=== PATIENT | female | born 1985 | race Caucasian/White ===

== ENCOUNTER 2017-10-15 13:06 | Inpatient (IN) | payer OTHER ==
[2017-10-15 13:25] VITALS: BMI 35.5
--- NOTE | 2017-10-15 13:44 | OBHP ---
Datetime: 10/15/2017 13:40 IP Adm Impression: , intrauterine IP Chief Complaint Other: no fh on level ii IP Admit Plan: Admit to unit; Initiate labor induction protocol Admit Comment, IP Provider: at 20=weeks edc 02/28/18 here as no fh seen on sono. pt was having s ome cramping few daus ago,no vb, lof. pt went for schuled level ii and no fh. obhx primi pmh obese med pnv all nkda psh de soch de a/p at 20+weeks demise repeat sonogram cont toco and possible induction if no fh Pelvic Type - PN: Adequate Extremities - PN: Normal Abdomen - PN: Normal Back - PN: Normal Breast - PN: Normal Lungs - PN: Normal Heart - PN: Normal Thyroid - PN: Normal Neurologic - PN: Normal HEENT - PN: Normal General - PN: Normal Contraction Comments Provider: none Vital Signs Provider: Reviewed; Within Normal Limits Genitourinary Exam: Normal DTRs - PN: Normal
[2017-10-15] MEDS: Lactated Ringer's 1,000 ML IV SCH ×2 (14:00→22:00)
--- NOTE | 2017-10-15 14:02 | OBADHP ---
Datetime: 10/15/2017 13:40 IP Chief Complaint Other: no fh on level ii Admit Comment, IP Provider: at 20=weeks edc 02/28/18 here as no fh seen on sono. pt was having s ome cramping few daus ago,no vb, lof. pt went for schuled level ii and no fh. obhx primi pmh obese med pnv all nkda psh de soch de a/p at 20+weeks demise repeat sonogram cont toco and possible induction if no fh sono no fh plan admit to l_d npo/ivf cytotec for induction torch titres u drug screen pain managment anticipate vaginal Pelvic Type - PN: Adequate Extremities - PN: Normal Abdomen - PN: Normal Back - PN: Normal Breast - PN: Normal Lungs - PN: Normal Heart - PN: Normal Thyroid - PN: Normal Neurologic - PN: Normal HEENT - PN: Normal General - PN: Normal Contraction Comments Provider: none Vital Signs Provider: Reviewed; Within Normal Limits Genitourinary Exam: Normal DTRs - PN: Normal IP Adm Impression: , intrauterine IP Admit Plan: Admit to unit; Initiate labor induction protocol
--- NOTE | 2017-10-15 14:15 | US ---
PROCEDURE: OB Pelvic Ultrasound HISTORY: Assess appears report 05/21/2017 with estimated gestational age of 21 weeks 0 days accordingly. No heart rate heard on ultrasound COMPARISON: None available. FINDINGS: UTERUS: Gestational sac: Single intrauterine gestation. Heart rate: No detected and B-mode or on spectral analysis. age (Ultrasound estimated): 18 weeks 3 days is discrepant from schwannoma weeks 0 days based on last menstrual period derived dates. The following mean parameters were obtained: BPD 3.85 cm corresponds to 17 weeks 5 days. HC 14.81 cm corresponds to 18 weeks 0 days. AC 12.9 cm corresponds to 18 weeks 3 days. FL 3.1 cm corresponds to 19 weeks 4 days. HC/AC ratio is within the normal range at 1.15. Estimated weight 260.17 g. Ashlee-gestational hemorrhage: None. Date of delivery (Ultrasound estimated) : 03/15/2018. Uterus no definitive mass seen throughout the myometrium with the cervix unremarkable. . CERVIX: Long and closed. No cervical abnormality seen. RIGHT OVARY: Not identified, no suspicious right adnexal mass. LEFT OVARY: Not identified, no suspicious left adnexal mass. FREE FLUID: None. OTHER FINDINGS: None. IMPRESSION: Findings most compatible with spontaneous with an 18 week 6 day intrauterine gestation identified in breech lie with posterior fundal placenta but no cardiac activity detectable. Please see discussion above. Further clinical correlation is advised.
[2017-10-15 14:57] LABS: BASO % 0.3 % (0.0-2.0); EOS # 0.2 K/uL (0.0-0.7); EOS % 1.5 % (0.0-4.0); HEMATOCRIT 38.3 % (34.0-47.0); LYMPH # 1.4 K/uL (1.0-4.3); LYMPH % 12.3 % (20.0-40.0); MEAN CELL VOLUME 88.8 fL (81.0-99.0); MEAN CORPUSCULAR HEMOGLOBIN 30.7 pg (27.0-31.0); MEAN CORPUSCULAR HGB CONC 34.6 g/dL (33.0-37.0); MEAN PLATELET VOLUME 8.5 fL (7.2-11.7); MONO # 0.4 K/uL (0.0-0.8); MONO % 3.9 % (0.0-10.0); WHITE BLOOD COUNT 11.3 K/uL (4.8-10.8)
[2017-10-15 15:08] LABS: INR 1.1
[2017-10-15 15:28] LABS: ALB/GLOB RATIO 1.4 (1.0-2.1); ALKALINE PHOSPHATASE 73 U/L (38-126); ALT/SGPT 29 U/L (9-52); AST/SGOT 21 U/L (14-36); BILIRUBIN,TOTAL 0.5 mg/dL (0.2-1.3); BLOOD UREA NITROGEN 5 mg/dL (7-17); CALCIUM 9.3 mg/dl (8.6-10.4); CARBON DIOXIDE 19 mmol/L (22-30); CHLORIDE 102 mmol/L (98-107); GFR AFRICAN-AMERICAN > 60; GLUCOSE,RANDOM 80 mg/dL (65-105); POTASSIUM 3.9 mmol/L (3.6-5.2); SODIUM 134 mmol/L (132-148); TOTAL PROTEIN 7.3 g/dL (6.3-8.3)
[2017-10-15 15:35] LABS: FDP INTERPRETATION POSITIVE (NEGATIVE); FDP QUANTITY >10<40 ug/mL (<10)
[2017-10-15 17:18] LABS: TOXOPLASMA IGG/IGM NEGATIVE (NEGATIVE)
[2017-10-15] MEDS ORDERED: Nalbuphine 20 mg/ml Inj (1 ml) ONE (18:53)
[2017-10-15] MEDS: Nalbuphine 20 mg/ml Inj (1 ml) IVP PRN (19:39)
[2017-10-16] MEDS ORDERED: Nalbuphine 20 mg/ml Inj (1 ml) ONE ×2 (00:06→03:53)
[2017-10-16] MEDS: Nalbuphine 20 mg/ml Inj (1 ml) IVP PRN ×2 (00:26→03:58)
[2017-10-16] MEDS: Lactated Ringer's 1,000 ML IV SCH (06:59)
--- NOTE | 2017-10-16 07:22 | OBPN ---
Datetime: 10/16/2017 07:20 IP Progress Note Comment: pt was examined at bed side.c/o pain. not tolerating sebastian with iv pain s/p cytotec 400 mcg x 4 ve ft/50/-3 plan repea labs epiural 600 mcg cytotec anticipate vaginal Datetime: 10/15/2017 13:40 Contraction Comments Provider: none Vital Signs Provider: Reviewed; Within Normal Limits
[2017-10-16 08:02] LABS: EOS # 0.1 K/uL (0.0-0.7); LYMPH # 2.1 K/uL (1.0-4.3)
[2017-10-16 08:09] LABS: INR 1.2
[2017-10-16 08:10] LABS: BASO % 0.2 % (0.0-2.0); HEMATOCRIT 31.1 % (34.0-47.0); LYMPH % 16.2 % (20.0-40.0); MEAN CELL VOLUME 89.2 fL (81.0-99.0); MEAN CORPUSCULAR HEMOGLOBIN 30.9 pg (27.0-31.0); MEAN CORPUSCULAR HGB CONC 34.7 g/dL (33.0-37.0); MEAN PLATELET VOLUME 8.4 fL (7.2-11.7); MONO # 0.8 K/uL (0.0-0.8); RED CELL DISTRIBUTION WIDTH 12.9 % (11.5-14.5); WHITE BLOOD COUNT 12.7 K/uL (4.8-10.8)
[2017-10-16] MEDS ORDERED: HYDROmorphone 1 mg/ml ISec IVP STA (08:15)
[2017-10-16] MEDS ORDERED: HYDROmorphone 0.5 mg/0.5 ml ISec IVP PRN (09:31)
[2017-10-16] MEDS ORDERED: Bupivacaine 0.125%/FentaNYL 200 ML EPI ONE (10:08)
[2017-10-16] MEDS ORDERED: Bupivacaine HCl 0.25% PF (10 ml) Inj ONE (10:08)
--- NOTE | 2017-10-16 12:12 | OBDS ---
DELIVERY PERSONNEL Delivery Doctor: Salvatore Fowler MD Automation Control Technician: Lilly Olivares RN Anesthesiologist: Dr. Lu MATERNAL INFORMATION Delivery Anesthesia: Epidural Placenta Cultured: Yes Maternal Complications: None Provider Comments: baby deliverd draryn breech .head delived spontaneously.nuchal cord x 1 noticed. t rue knot in the cord. cord clamped cut. placente spontaneously de;liverd. ebl min no laceration chromosome analysis done placente send to pathology. LABOR SUMMARY EDC: 02/28/2018 00:00 No. Babies in Womb: 1 LABOR INFORMATION Cervical Ripening Agents: Cytotec @ (Annotations: 600mg given PO as per MD's order. See [facility] MA R documentation.) Group B Beta Strep: N/A STAGES OF LABOR Stage 3 hrs: 0 Stage 3 min: 3 BABY A INFORMATION Infant Delivery Date/Time: 10/16/2017 11:29 Method of Delivery: Vaginal Born in Route : No : N/A Forceps: N/A Vacuum Extraction: N/A Shoulder Dystocia : No SHOULDER DYSTOCIA BABY A Infant Delivery Date/Time: 10/16/2017 11:29 PRESENTATION/POSITION BABY A Presentation: Breech Breech Presentation: Darryn PLACENTA INFORMATION BABY A Placenta Delivery Time : 10/16/2017 11:32 Placenta Method of Delivery: Spontaneous Placenta Status: Delivered INFANT INFORMATION BABY A Gestational Age at Delivery: 20.5 Gestational Status: Outcome : Stillborn CORD INFORMATION BABY A Nuchal Cord : Around Neck x1, Tight True Knot: 1 Infant Suction: None
[2017-10-16] MEDS ORDERED: Oxycodone/Acetaminophen 5/325 mg Tab PO PRN ×2 (12:14)
--- NOTE | 2017-10-16 12:14 | OBPN ---
Datetime: 10/16/2017 12:11 IP Progress Note Comment: pt was seen at bed side. baby deliverd breech. cord arround neck with true knot. placente to pathology. no com.
[2017-10-16] MEDS ORDERED: Oxytocin 30 UNIT 30 UNITS/500 ML BAG IV SCH (12:15)
[2017-10-16 20:36] LABS: CYTOMEGALOVIRUS AB (IGM) <30.00 AU/mL
[2017-10-17 08:09] VITALS: BP 115/74; PULSE 98; RESP 18; O2SAT 100
[2017-10-17 08:12] LABS: BASO % 0.2 % (0.0-2.0); EOS # 0.3 K/uL (0.0-0.7); EOS % 2.2 % (0.0-4.0); HEMATOCRIT 34.1 % (34.0-47.0); LYMPH % 13.6 % (20.0-40.0); MEAN CELL VOLUME 89.7 fL (81.0-99.0); MEAN CORPUSCULAR HEMOGLOBIN 30.2 pg (27.0-31.0); MEAN CORPUSCULAR HGB CONC 33.6 g/dL (33.0-37.0); MEAN PLATELET VOLUME 8.4 fL (7.2-11.7); MONO # 0.7 K/uL (0.0-0.8); MONO % 4.4 % (0.0-10.0)
[2017-10-17 17:22] VITALS: TEMP 97
[2017-10-17 19:24] LABS: TOXOPLASMA IGG AB <7.20 IU/mL; TOXOPLASMA IGM AB <8.00 AU/mL
== END 2017-10-17 11:50 | disposition home or self-care (01) | DRG 373 ==
LOC: C.EROB 13:06 → C.4D 13:50 → C.4M 10-16 16:41
PROVIDERS: ADMIT Obstetrics & Gynecology; ATTEND Obstetrics & Gynecology
PROC: 10E0XZZ Delivery of Products of Conception, External Approach (ICD-10-PCS; principal; 2017-10-16)
DX: O36.4XX0 Maternal care for intrauterine death, not applicable or unspecified (principal); E66.9 Obesity, unspecified; O32.1XX0 Maternal care for breech presentation, not applicable or unspecified; O69.1XX0 Labor and delivery complicated by cord around neck, with compression, not applicable or unspecified; O69.2XX0 Labor and delivery complicated by other cord entanglement, with compression, not applicable or unspecified; Z3A.20 20 weeks gestation of pregnancy; O99.212 Obesity complicating pregnancy, second trimester; Z37.1 Single stillbirth

== ENCOUNTER 2018-02-08 22:58 | Emergency (ER) | payer OTHER ==
[2018-02-08 22:58] VITALS: BMI 35.5
[2018-02-08 23:14] VITALS: BP 126/86; PULSE 90; RESP 14; TEMP 98; O2SAT 96
--- NOTE | 2018-02-08 23:44 | C.PDOC ---
History Of Present Illness Patient requesting test, stating she thinks she is . Patient reports last menses was beginning of last month. She is late but started spotting lightly today. She reports nausea and breast soreness. she did not take any home tests Time Seen by Provider: 02/08/18 23:18 Chief Complaint (Nursing): Medical Clearance History Per: Patient History/Exam Limitations: no limitations Past Medical History Reviewed: Historical Data, Nursing Documentation, Vital Signs Vital Signs: Last Vital Signs Temp 98 F 02/08/18 23:11 Pulse 90 02/08/18 23:11 Resp 14 02/08/18 23:11 BP 126/86 02/08/18 23:11 Pulse Ox 96 02/08/18 23:44 - Medical History PMH: No Chronic Diseases - [facility] Procedures DELIVERY OF PRODUCTS OF CONCEPTION, EXTERNAL APPROACH (10/15/17) Family History: States: Unknown Family Hx - Social History Hx Alcohol Use: No Hx Substance Use: No - Immunization History Hx Tetanus Toxoid Vaccination: No Hx Influenza Vaccination: No Hx Pneumococcal Vaccination: No Review Of Systems Except As Marked, All Systems Reviewed And Found Negative. Genitourinary: Positive for: Vaginal Bleeding Physical Exam - Physical Exam Appears: Well, Non-toxic, No Acute Distress Skin: Warm, Dry, No Diaphoretic, No Pale, No Rash Head: Atraumatic, Normacephalic Eye(s): bilateral: Normal Inspection, EOMI Nose: Normal Neck: Normal ROM Chest: Symmetrical Cardiovascular: Rhythm Regular, No Murmur Respiratory: Normal Breath Sounds, No Wheezing Gastrointestinal/Abdominal: Soft, No Tenderness, No Guarding Back: Normal Inspection Extremity: Bilateral: Atraumatic, Normal ROM Neurological/Psych: Oriented x3, Normal Speech ED Course And Treatment O2 Sat by Pulse Oximetry: 96 Medical Decision Making Medical Decision Making: POC tests ordered and resulted negative I informed patient of negative test. Patient is trying to get and is asking for blood test. I explained this is not emergency test and she can follow up with her kiosk sales representative outpatient. Disposition Counseled Patient/Family Regarding: Diagnosis, Need For Followup - Disposition Referrals: Salvatore Fowler MD [Staff Provider] - Disposition: HOME/ ROUTINE Disposition Time: 23:47 Condition: GOOD Additional Instructions: Your test was negative. Please follow up with your kiosk sales representative or clinic for more care Instructions: Tests Forms: [employer] (Hebrew) - POA Present On Arrival: None - Clinical Impression Clinical Impression: Negative test
== END 2018-02-08 23:51 | disposition home or self-care (01) ==
LOC: C.ER 22:58
DX: Z32.02 Encounter for pregnancy test, result negative (principal)